=== PATIENT | male | born 1970 | race Caucasian/White ===

== ENCOUNTER 2022-11-17 11:19 | Emergency (ER) | payer BC, SELFPAY ==
[2022-11-17] VITALS (21 sets, daily range): BP systolic 89–107; BP diastolic 55–78; PULSE 67–89; RESP 20; TEMP 36.4; O2SAT 91–98; BMI 47.9
--- NOTE | 2022-11-17 11:55 | ED.GENADULT ---
HPI - General Adult General Time Seen by Provider: 11:55 Date Seen: 11/17/22 Chief complaint: Dizziness/Vertigo Stated complaint: Dizziness, spots in vision Time Seen by Provider: 11/17/22 11:28 Source: patient Mode of arrival: EMS History of Present Illness HPI narrative: Patient is a 52 year white male has had a history of coronary artery stent, and balloon procedure years ago, he has had DVT, he has had AFib. Patient is on Coumadin. Has had a GI bleed in the past. 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 Any time he would stand up he would feel more lightheaded and see spots and feels lightheaded. He reports he has not had any significant change in his bowel or bladder function but he does notice some maroonish stool it sounds like a couple days ago, he is on Coumadin as mention for DVT and history of AFib. Patient denies recent cough, cold, leg swelling or edema. Patient reports he was feeling quite hot before he felt lightheaded. He continues to feel intermittently lightheaded here in the ED. Related Data Home Medications Medication Instructions Recorded Confirmed atorvastatin 40 mg tablet 40 mg PO QPM 11/17/22 11/17/22 isosorbide mononitrate 60 mg mg PO 11/17/22 tablet,extended release 24 hr losartan 100 1 tab PO DAILY 11/17/22 11/17/22 mg-hydrochlorothiazide 25 mg tablet metoprolol succinate 100 mg 100 mg PO DAILY 11/17/22 11/17/22 tablet,extended release 24 hr nitroglycerin 0.4 mg sublingual mg sublingual 11/17/22 tablet warfarin 5 mg tablet mg PO 11/17/22 Allergies Allergy/AdvReac Type Severity Reaction Status Date / Time hydrochlorothiazide Allergy Verified 11/17/22 11:24 lisinopril Allergy Cough Verified 11/17/22 11:24 morphine Allergy itching Verified 11/17/22 11:24 Review of Systems Status of ROS: Reports: 6 or more systems reviewed and unremarkable except as noted in History and below PFSH PFSH Social History Smoking Status: Former smoker How often do you have a drink containing alcohol: monthly or less AUDIT-C Alcohol total score: 1 Non-prescribed substance use: denies use Exam Narrative: Exam Narrative: Objective: Patient's vital signs show slightly low blood pressure 94/61, the patient reports he does take losartan hydrochlorothiazide metoprolol, and has increased the hydrochlorothiazide component in the last couple months. HEENT is unremarkable somewhat pale lips, his conjunctiva appear okay, no scleral icterus, pupils aggression light Neck is supple Chest is clear Heart rhythm regular heart murmur Patient's BMI is quite elevated Abdomen benign obese nontender, he has got a midline surgical scar that is from a gastric bypass and hernia repair. Extremities are no edema Neurologic nonfocal periphery good perfusion Const: Vital Signs, click to edit/add: Vital Signs - 24 hr 11/17/22 11:24 11/17/22 11:52 11/17/22 12:00 Temperature 97.6 F Pulse Rate 81 84 Pulse Rate [Left P ulse Oximeter] 89 Respiratory Rate 20 Blood Pressure Blood Pressure [Le ft Upper Arm] 94/61 Pulse Oximetry 97 95 94 Oxygen Delivery Me thod Room Air 11/17/22 12:02 11/17/22 12:30 11/17/22 12:30 Temperature Pulse Rate 82 79 Pulse Rate [Left P ulse Oximeter] Respiratory Rate Blood Pressure 97/63 Blood Pressure [Le ft Upper Arm] Pulse Oximetry 93 91 94 Oxygen Delivery Me thod 11/17/22 12:32 11/17/22 12:46 11/17/22 13:00 Temperature Pulse Rate 81 77 75 Pulse Rate [Left P ulse Oximeter] Respiratory Rate Blood Pressure 107/55 L 98/55 L Blood Pressure [Le ft Upper Arm] Pulse Oximetry 92 93 92 Oxygen Delivery Me thod 11/17/22 13:02 11/17/22 13:03 11/17/22 13:17 Temperature Pulse Rate 77 76 79 Pulse Rate [Left P ulse Oximeter] Respiratory Rate Blood Pressure 99/59 L 89/58 L Blood Pressure [Le ft Upper Arm] Pulse Oximetry 93 92 93 Oxygen Delivery Me thod 11/17/22 13:22 11/17/22 13:30 11/17/22 13:31 Temperature Pulse Rate 67 72 75 Pulse Rate [Left P ulse Oximeter] Respiratory Rate Blood Pressure 97/65 103/75 Blood Pressure [Le ft Upper Arm] Pulse Oximetry 95 94 94 Oxygen Delivery Me thod 11/17/22 13:47 11/17/22 14:00 11/17/22 14:01 Temperature Pulse Rate 71 71 72 Pulse Rate [Left P ulse Oximeter] Respiratory Rate Blood Pressure 96/60 99/58 L Blood Pressure [Le ft Upper Arm] Pulse Oximetry 94 94 95 Oxygen Delivery Me thod 11/17/22 14:17 11/17/22 14:30 11/17/22 14:31 Temperature Pulse Rate 71 71 69 Pulse Rate [Left P ulse Oximeter] Respiratory Rate Blood Pressure 103/70 96/62 Blood Pressure [Le ft Upper Arm] Pulse Oximetry 97 95 96 Oxygen Delivery Me thod 11/17/22 14:47 Temperature Pulse Rate 72 Pulse Rate [Left P ulse Oximeter] Respiratory Rate Blood Pressure 103/78 Blood Pressure [Le ft Upper Arm] Pulse Oximetry 98 Oxygen Delivery Me thod Course Vital Signs Vital signs: Initial Vital Signs Temperature 97.6 F 11/17/22 11:24 Temperature Source Temporal Artery Scan 11/17/22 11:24 Pulse Rate 89 11/17/22 11:24 Pulse Rhythm Regular 11/17/22 11:24 Pulse Strength 3+ Normal 11/17/22 11:24 Respiratory Rate 20 11/17/22 11:24 Blood Pressure 94/61 11/17/22 11:24 Blood Pressure Mean 72 11/17/22 11:24 Blood Pressure Position Sitting 11/17/22 11:24 Pulse Oximetry 97 11/17/22 11:24 Oxygen Delivery Method Room Air 11/17/22 11:24 Vital Signs Temperature 97.6 F 11/17/22 11:24 Pulse Rate 89 11/17/22 11:24 Respiratory Rate 20 11/17/22 11:24 Blood Pressure 94/61 11/17/22 11:24 Pulse Oximetry 97 11/17/22 11:24 Oxygen Delivery Method Room Air 11/17/22 11:24 Temperature 97.6 F 11/17/22 11:24 Pulse Rate 72 11/17/22 14:47 Respiratory Rate 20 11/17/22 11:24 Blood Pressure 103/78 11/17/22 14:47 Pulse Oximetry 98 11/17/22 14:47 Oxygen Delivery Method Room Air 11/17/22 11:24 Medical Decision Making MDM Narrative Medical decision making narrative: Patient is a 52 year white male with a history of coronary artery disease status post stenting and balloon, with near syncopal episode today, history of potential GI bleed. History of hypertension and within the last couple months increased diuretic component of his blood pressure medication. This point will check electrolytes, cardiac enzymes, IV fluid rehydration, will get a chest CT scan for completeness given his near syncope. Rule out PE. Patient may need admission for observation IV hydration and telemetry monitoring and serial cardiac enzymes. Addendum: 3:00 p.m.: Kareem has a normal sinus rhythm no acute ST T wave change EKG by my read. He has been up to go to the bathroom and feels better. Two troponins are negative. CRP is negative. White count hemoglobin are normal, INR is 2.43. ER profile unremarkable. Lactate was just minimally elevated likely due to mild dehydration., COVID/influenza/RSV negative. At this point I recommend the patient hold his losartan hydrochlorothiazide until he follows up with his doctor. Recommend check his blood pressure at home or as needed over the next couple of days. Continue other home medications Lab Data Labs: Lab Results 11/17/22 11/17/22 11/17/22 Range/Units 12:15 12:16 14:40 WBC 7.85 (4.50-11.00) K/uL RBC 4.28 L (4.30-5.90) m/uL Hgb 13.5 (13.5-17.5) gm/dL Hct 39.6 (37.0-53.0) % MCV 93 (80-100) fL MCH 32 (26-34) pg MCHC 34 (32-36) gm/dL RDW Coeff of Yoana 14.4 (11.5-15.5) % Plt Count 165 (140-440) K/uL Neut % (Auto) 73.2 H (42.0-72.0) % Lymph % (Auto) 14.9 L (20-44) % [place] % (Auto) 10.6 (0.0-11.0) % Eos % (Auto) 0.6 (0.0-7.0) % Baso % (Auto) 0.4 (0.0-3.0) % Neut # (Auto) 5.75 (1.7-7.0) K/uL Lymph # (Auto) 1.17 (0.90-2.90) K/uL [place] # (Auto) 0.83 (0.00-0.90) K/UL Eos # (Auto) 0.05 (0.00-0.50) K/uL Baso # (Auto) 0.03 (0.00-0.30) K/uL INR 2.43 H (0.91-1.10) APTT 34 H (23-33) Seconds Sodium 135 (135-149) mmol/L Potassium 3.7 (3.6-5.1) mmol/L Chloride 98 (96-114) mmol/L Carbon Dioxide 28 (20-32) mmol/L BUN 24 (7-30) mg/dL Creatinine 1.4 (0.5-1.5) mg/dL Estimated Creat Clear 63.73 Estimated GFR 60 ml/min Glucose 102 (60-115) mg/dL Lactate 2.6 H (0.5-1.9) mmol/L Calcium 9.7 (8.4-10.6) mg/dL Total Bilirubin 1.1 (0.1-1.5) mg/dL Direct Bilirubin 0.2 (0.0-0.5) mg/dL AST 53 H (12-35) U/L ALT 43 (4-50) U/L Alkaline Phosphatase 64 (40-150) U/L Troponin I < 0.01 L (0.01-0.04) ng/mL C-Reactive Protein < 0.5 L (0.5-1.0) mg/dL NT-Pro-B Natriuret Pep 122 pg/mL Total Protein 7.0 (6.0-8.3) g/dL Albumin 4.1 (3.3-5.0) g/dL Amylase 84 (18-89) U/L SARS-CoV-2 (PCR) Negative SARS-CoV-2 (Negative) Influenza Type A (PCR) Negative PCR FLU A (Negative) Influenza Type B (PCR) Negative PCR FLU B (Negative) RSV (PCR) Negative PCR RSV (Negative) POC Troponin I 0.00 L (0.01-0.04) ng/ml Blood Type A Positive Antibody Screen NEGATIVE Crossmatch (AHG) See Detail Discharge Plan Discharge Clinical Impression: Near syncope, Dehydration Patient Disposition: Home, Self-Care Condition: Improved Additional Instructions: Stop your losartan hydrochlorothiazide for now. Check your blood pressure daily. Recheck with regular doctor next 2-3 days. Continue other home medications. Return to the ED if any changes concerns or problems. Recommend off work for 2 days. Note written for that affect. Light activity and heart healthy diet Activity Level: Light activity Discharge Diet: Heart Healthy (2 gm sodium, low fat) Prescriptions: No Action atorvastatin 40 mg tablet 40 mg PO QPM metoprolol succinate 100 mg tablet extended release 24 hr 100 mg PO DAILY losartan-hydrochlorothiazide 100-25 mg tablet 1 tab PO DAILY isosorbide mononitrate 60 mg tablet extended release 24 hr PO warfarin 5 mg tablet PO nitroglycerin 0.4 mg tablet, sublingual sublingual Stand Alone Forms: [facility] Info Instructions
[2022-11-17] MEDS: 0.9 % SODIUM CHLORIDE 1000 ml 1,000 ML 6000 ML IV ×2 (12:23→13:45)
[2022-11-17 12:31] LABS: Hematocrit 39.6 % (37.0-53.0); Hemoglobin* 13.5 gm/dL (13.5-17.5); Lactate* 2.6 mmol/L (0.5-1.9); Mean Corpuscular Hemoglobin 32 pg (26-34); Mean Corpuscular Volume 93 fL (80-100); Red Blood Count 4.28 m/uL (4.30-5.90); White Blood Count* 7.85 K/uL (4.50-11.00)
[2022-11-17 12:32] LABS: Basophils Absolute Auto 0.03 K/uL (0.00-0.30); Basophils Percent Auto 0.4 % (0.0-3.0); Eosinophils Absolute Auto 0.05 K/uL (0.00-0.50); Eosinophils Percent Auto 0.6 % (0.0-7.0); Immature Granulocytes Abs Auto 0.02 K/uL (0.00-0.30); Immature Granulocytes Pct Auto 0.3 %; Lymphocytes Absolute Auto 1.17 K/uL (0.90-2.90); Lymphocytes Percent Auto 14.9 % (20-44); Mean Corpuscular HGB Conc 34 gm/dL (32-36); Monocytes Absolute Auto 0.83 K/UL (0.00-0.90); Monocytes Percent Auto 10.6 % (0.0-11.0); Neutrophils Absolute Auto 5.75 K/uL (1.7-7.0); Neutrophils Percent Auto 73.2 % (42.0-72.0); Platelet Count* 165 K/uL (140-440); RDW Coefficient of Variation % 14.4 % (11.5-15.5); Slide Review Reflex No
[2022-11-17 12:47] LABS: Albumin* 4.1 g/dL (3.3-5.0); Chloride* 98 mmol/L (96-114)
[2022-11-17 12:48] LABS: Potassium* 3.7 mmol/L (3.6-5.1); Sodium* 135 mmol/L (135-149)
[2022-11-17 12:50] LABS: Alkaline Phosphatase* 64 U/L (40-150); Amylase* 84 U/L (18-89); Aspartate Amino Transferase* 53 U/L (12-35); Bilirubin Direct* 0.2 mg/dL (0.0-0.5); Bilirubin Total* 1.1 mg/dL (0.1-1.5); Blood Urea Nitrogen* 24 mg/dL (7-30); Carbon Dioxide* 28 mmol/L (20-32); Creatinine* 1.4 mg/dL (0.5-1.5); Est. Creatinine Clearance* 63.73; Estimated Glomerular Filt Rate 60 ml/min; INR 2.43 (0.91-1.10); Partial Thromboplastin Time* 34 Seconds (23-33); Prothrombin Time 27.7 Seconds
[2022-11-17 12:51] LABS: Alanine Aminotransferase* 43 U/L (4-50); Calcium* 9.7 mg/dL (8.4-10.6); Glucose* 102 mg/dL (60-115)
[2022-11-17 12:57] LABS: C Reactive Protein* < 0.5 mg/dL (0.5-1.0)
[2022-11-17 13:09] LABS: NT Pro B Type NatriureticPept* 122 pg/mL; Troponin I* < 0.01 ng/mL (0.01-0.04)
[2022-11-17 13:10] LABS: SARS PCR* Negative SARS-CoV-2 (Negative)
[2022-11-17 13:53] LABS: PCR FLU A Negative PCR FLU A (Negative); PCR FLU B Negative PCR FLU B (Negative); PCR RSV Negative PCR RSV (Negative)
== END 2022-11-17 15:23 | disposition home or self-care (01) ==
PROVIDERS: Emergency Provider Family Medicine
DX: R42 Dizziness and giddiness (principal); E86.0 Dehydration
CPT/HCPCS: 36415; 80048; 80076; 82150; 83605; 83880; 84484; 85025; 85610; 85730; 86140; 86850; 86900; 86901; 86922; 87631; 93005; 94761; 99284; 99285; J7030

== ENCOUNTER 2022-12-17 01:45 | Emergency (ER) | payer BC, SELFPAY ==
[2022-12-17] VITALS (8 sets, daily range): BP systolic 131–148; BP diastolic 79–98; PULSE 67–71; RESP 16; TEMP 36.7–36.9; O2SAT 95–98; BMI 47.3
--- NOTE | 2022-12-17 01:54 | ED_ITS ---
HPI - General Adult General Time Seen by Provider: 01:54 Date Seen: 12/17/22 Chief complaint: Back Injury/Pain Stated complaint: Back Pain Time Seen by Provider: 12/17/22 01:57 Source: patient, EMS, RN notes reviewed and old records reviewed Mode of arrival: EMS Limitations: no limitations History of Present Illness HPI narrative: 52-year-old male who comes in today with back pain. Got up to go to the bathroom bathroom this evening and noted ?spasm? in his back. He took one Tylenol for this with no improvement. Denies bowel or bladder incontinence. Pain is in the right low back and radiates down the back of the right leg. Patient has history of DVT in his on Coumadin. Also reported history of atrial fibrillation and coronary artery disease. Reports allergies to lisinopril, morphine, chlorthalidone. Related Data Home Medications Medication Instructions Recorded Confirmed atorvastatin 40 mg tablet 40 mg PO QPM 11/17/22 12/17/22 isosorbide mononitrate 60 mg 60 mg PO DAILY 11/17/22 12/17/22 tablet,extended release 24 hr losartan 100 1 tab PO DAILY 11/17/22 12/17/22 mg-hydrochlorothiazide 25 mg tablet metoprolol succinate 100 mg 100 mg PO DAILY 11/17/22 12/17/22 tablet,extended release 24 hr nitroglycerin 0.4 mg sublingual 0.4 mg sublingual DIRECTED PRN 11/17/22 12/17/22 tablet warfarin 5 mg tablet 5 mg PO DIRECTED 11/17/22 12/17/22 Previous Rx's Medication Instructions Recorded gabapentin 300 mg capsule 300 mg PO TID #90 caps 12/17/22 Allergies Allergy/AdvReac Type Severity Reaction Status Date / Time lisinopril Allergy Mild Cough Verified 12/17/22 02:03 morphine Allergy Mild itching Verified 12/17/22 02:03 [facility] Medical History (Updated 12/17/22 @ 02:19 by Junito Lorenzo RN) DVT (deep venous thrombosis) ?I82.409 - Acute embolism and thrombosis of unspecified deep veins of unspecified lower extremity (ICD-10) Hypertension ?I10 - Essential (primary) hypertension (ICD-10) Surgical History (Updated 12/17/22 @ 02:19 by Junito Lorenzo RN) No significant past surgical history Social History Smoking Status: Former smoker How often do you have a drink containing alcohol: monthly or less AUDIT-C Alcohol total score: 1 Non-prescribed substance use: denies use Exam Narrative: Exam Narrative: General: Well-developed and well-nourished, no acute distress Head: Atraumatic and normocephalic Eyes: Pupils are equal reactive, extraocular motions intact, conjunctiva clear ENT: External nose and ears are normal, posterior pharynx without erythema or exudate Neck: No midline cervical tenderness, full spontaneous range of motion the neck, trachea midline, no adenopathy Heart: Regular rate and rhythm no murmurs or thrills Lungs: Clear to auscultation bilaterally without wheezes or crackles Abdomen: Soft, nontender, nondistended with active bowel sounds Musculoskeletal: Right low lumbar tenderness. Mild bilateral lower extremity edema with hemosiderin deposition bilaterally. Neurologic: Awake, alert, and oriented x3, no gross focal neurologic deficits, cranial nerves intact as tested Psych: Mood and affect are appropriate Skin: No rashes Const: Vital Signs, click to edit/add: Vital Signs - 24 hr 12/17/22 01:58 12/17/22 02:00 12/17/22 02:10 Temperature 98.0 F 98.0 F Pulse Rate Pulse Rate [Right Pulse Oximeter] 67 Respiratory Rate 16 Blood Pressure Blood Pressure [Ri ght Upper Arm] 148/98 H Pulse Oximetry 95 96 Oxygen Delivery Me thod Room Air 12/17/22 02:14 Temperature Pulse Rate 68 Pulse Rate [Right Pulse Oximeter] Respiratory Rate 16 Blood Pressure 145/88 H Blood Pressure [Ri ght Upper Arm] Pulse Oximetry 95 Oxygen Delivery Me thod Course Course Hospital Course: Patient seen and examined, prior records are reviewed. Patient presents today with right low back pain. He reports this is spasms and worse with movement, radiating to the right leg. Considered kidney stone but no CVA tenderness and pain radiates to the leg. Consider also aortic dissection or aneurysm but patient is highly stable, no abdominal pain, pain does not radiate into the chest, upper back, or abdomen. Dorsalis pedis pulse is intact and the leg is warm and good capillary refill, arterial occlusion unlikely. Symptoms are most consistent with lumbar radiculopathy. Toradol and Ativan are ordered initially, patient will also be given a dose of Decadron in the emergency department. Reevaluation(s) Time of Reevaluation #1: 02:56 Reevaluation #1: Patient recheck, back pain is improved but still having some pain. Oxycodone ordered and plan to discharge with oxycodone, Ativan for muscle relaxation, gabapentin, and work note. Vital Signs Vital signs: Initial Vital Signs Temperature 98.0 F 12/17/22 01:58 Temperature Source Temporal Artery Scan 12/17/22 01:58 Pulse Rate 67 12/17/22 01:58 Respiratory Rate 16 12/17/22 01:58 Blood Pressure 148/98 H 12/17/22 01:58 Blood Pressure Mean 114 H 12/17/22 01:58 Blood Pressure Position Sitting 12/17/22 01:58 Pulse Oximetry 95 12/17/22 01:58 Oxygen Delivery Method Room Air 12/17/22 01:58 Vital Signs Temperature 98.0 F 12/17/22 01:58 Pulse Rate 67 12/17/22 01:58 Respiratory Rate 16 12/17/22 01:58 Blood Pressure 148/98 H 12/17/22 01:58 Pulse Oximetry 95 12/17/22 01:58 Oxygen Delivery Method Room Air 12/17/22 01:58 Temperature 98.0 F 12/17/22 02:10 Pulse Rate 68 12/17/22 02:14 Respiratory Rate 16 12/17/22 02:14 Blood Pressure 145/88 H 12/17/22 02:14 Pulse Oximetry 95 12/17/22 02:14 Oxygen Delivery Method Room Air 12/17/22 01:58 Medical Decision Making Lab Data Labs: Lab Results 12/17/22 Range/Units 02:00 INR 2.31 H (0.91-1.10) Discharge Plan Discharge Clinical Impression: Lumbar radiculopathy Patient Disposition: Home, Self-Care Condition: Stable Instructions: Lumbar Radiculopathy (ED), Back Pain (ED) Activity Level: No strenuous activity Activity Detail: Follow-up with your doctor next week for physical therapy referral Discharge Diet: Regular Prescriptions: New gabapentin 300 mg capsule 300 mg PO TID Qty: 90 0RF No Action atorvastatin 40 mg tablet 40 mg PO QPM metoprolol succinate 100 mg tablet extended release 24 hr 100 mg PO DAILY losartan-hydrochlorothiazide 100-25 mg tablet 1 tab PO DAILY isosorbide mononitrate 60 mg tablet extended release 24 hr 60 mg PO DAILY warfarin 5 mg tablet 5 mg PO DIRECTED Rx Instructions: Take 1 tablet by mouth every Tuesday and evening, and 1/2 tablet by mouth all other days in the evening OR as directed nitroglycerin 0.4 mg tablet, sublingual 0.4 mg sublingual DIRECTED PRN Follow Up/Referrals: Provider,Not a Local [Referring] - Stand Alone Forms: [facility] Info Instructions
[2022-12-17] MEDS: dexAMETHasone 4 MG/ML VIAL 10 MG IV (02:08)
[2022-12-17] MEDS: KETOROLAC 15 MG/ML inj IVP (02:10)
[2022-12-17] MEDS: LORazepam 2 MG/ML inj 0.5 MG IVP (02:12)
[2022-12-17 02:27] LABS: INR 2.31 (0.91-1.10); Prothrombin Time 26.5 Seconds
[2022-12-17] MEDS: OxyCODONE/APAP 5-325 TABLET 1 TAB PO (03:02)
[2022-12-17] MEDS: GABAPENTIN 300 MG CAPSULE PO (03:03)
== END 2022-12-17 03:50 | disposition home or self-care (01) ==
LOC: ED 02:07
PROVIDERS: Emergency Provider Family Medicine; PCP Nurse Practitioner Family
DX: M54.16 Radiculopathy, lumbar region (principal)
CPT/HCPCS: 36415; 85610; 94761; 96374; 96375; 99284; A9270; J1100; J1885; J2060